=== PATIENT | male | born 1970 | race Hispanic/Latino ===

== ENCOUNTER 2019-12-08 17:13 | Emergency (ER) | payer SELFPAY ==
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
== END 2019-12-08 20:04 | disposition home or self-care (01) ==
LOC: ERS 17:13
DX: S83.91XA Sprain of unspecified site of right knee, initial encounter (principal); I10 Essential (primary) hypertension; F17.210 Nicotine dependence, cigarettes, uncomplicated; V89.2XXA Person injured in unspecified motor-vehicle accident, traffic, initial encounter

== ENCOUNTER 2020-05-10 15:11 | Outpatient (CLI) | payer OTHER ==
--- NOTE | 2020-05-10 16:35 | CT ---
CT Abdomen WO Con 05/10/2020 3:45 PM HISTORY: Abdominal pain and swelling for one year. COMPARISON: None. Technique: Multiple contiguous axial CT images are obtained through the abdomen and pelvis without IV contrast. Coronal reformats are provided. FINDINGS: This examination is limited for the evaluation of solid organs and vascular structures due to the lac k of intravenous contrast. Lower Chest: Dependent bibasilar atelectasis is present. Liver: Diminished attenuation relative to the spleen suggesting hepatic steatosis with mild fatty spa ring adjacent to the gallbladder. The liver is enlarged measuring 22 cm in craniocaudal dimensions Gallbladder: Within normal limits for CT imaging. Pancreas: Grossly normal nonenhanced CT appearance. Spleen: Grossly normal nonenhanced CT appearance. Adrenals: Grossly normal nonenhanced CT appearance. Kidneys and ureters: No renal or ureteral calculi are seen bilaterally. Lymph Nodes: Multiple bulky enlarged aortocaval lymph nodes are seen. Largest lymph node is seen in a right aortocaval location measuring 7.6 cm x 4.2 cm which abuts the right aspect of the abdominal aorta and displaces the IVC anteriorly with flattening of the IVC. However, vascular structures are n ot adequately evaluated due to lack of intravenous contrast. Multiple additional enlarged aortocaval lymph nodes are seen. There are also enlarged lymph nodes seen within the central mesenter y largest measuring 1.7 cm in short axis dimension with adjacent inflammatory stranding in the mesentery. There is also bulky lymphadenopathy along the iliac chains bilaterally which are difficult to discern from the adjacent psoas musculature due to lack of intravenous contrast. Iliac chain lymphadenopathy is not completely imaged as only CT abdomen was performed. There are enlarged epicardial lymph nodes present largest measuring 4.2 cm x 1.5 cm. There is a mass seen along the inferior aspect of the internal mammary chain near the right aspect of the distal portion of the* likely related to an enlarged lymph node measuring 3.3 cm x 2.9 cm. Several soft tissue masses are se en related to enlarged lymph nodes with largest lymph node seen right lateral aspect of the upper abdomen in the adipose soft tissues measuring 3 cm. Findings are worrisome for lymphoma. There is a very large and diffuse area of soft tissue masslike density involving the anterior skin an d soft tissues of the anterior abdomen and imaged portion of the upper pelvis with multiple scattered nodular densities seen throughout the adipose soft tissues as well. Findings are likely rel ated to cutaneous and soft tissue lymphomatous involvement. There is subcutaneous edema seen about the abdomen visualized upper pelvis. Bowel: Normal in caliber where visualized. Peritoneum/Retroperitoneum: As described above with enlarged aortocaval lymph nodes and inflammatory stranding in the central mesentery. Vessels: Incompletely assessed due to adjacent bulky lymphadenopathy. The abdominal aorta does appear normal in caliber.. Abdominal Wall: As described above. Bones: Mild degenerative changes in the spine. No suspicious lytic or sclerotic osseous lesion is otf ntified. IMPRESSION: 1. Bulky aortocaval and iliac chain lymphadenopathy with multiple epicardial lymph nodes as well as e nlarged lymph node along the right inferior internal mammary chain. In addition, there are several subcutaneous nodules/masses likely to multiple enlarged lymph nodes. Findings are likely related to l ymphoma. Metastatic disease is a possibility. 2. Very large masslike soft tissue density in the subcutaneous soft tissues and involving the skin of the anterior abdomen and imaged portion of the upper pelvis which is also worrisome for lymphomatous involvement. 3. While the overall extent of disease is unable to be evaluated on this examination as only CT abdom en was performed. PET/CT scan examination would be helpful to evaluate for extent of disease. However, tissue sampling would also be warranted for diagnosis. 4. Hepatomegaly and diffuse fatty infiltration the liver.
== END 2020-05-10 15:12 | disposition home or self-care (01) ==
LOC: BICCT 15:11
PROVIDERS: ATTEND Nurse Practitioner Family
DX: R10.9 Unspecified abdominal pain (principal); K76.0 Fatty (change of) liver, not elsewhere classified; R16.0 Hepatomegaly, not elsewhere classified; R59.0 Localized enlarged lymph nodes
CPT/HCPCS: 74150